=== PATIENT | male | born 1985 | race African-American/Black ===

== ENCOUNTER 2020-12-14 22:58 | Observation (INO) | payer OTHER ==
--- NOTE | 2020-12-14 23:49 | US ---
INDICATION: Right upper quadrant pain TECHNIQUE: Ultrasound abdomen limited. Sonographic images of the right upper quadrant were obtained using hamm-scale and color Doppler images. COMPARISON: None FINDINGS: Liver: Moderate diffuse fatty infiltration of the liver is notedwith mild focal fatty sparing near the gallbladder fossa. Gallbladder: No gallstones or sludge seen in the lumen. The gallbladder wall is normal in appearance. A region of decreased echogenicity seen near the gallbladder fossa along the fundus. This is most likely due to focal fatty sparing rather than tear cholecystic fluid. No pericholecystic fluid is present. No sonographic [place] sign is present. Common bile duct: 5 mm. No intrahepatic biliary ductal dilatation seen. Pancreas: The visualized portions of the pancreatic head and body are normal in appearance. Right Kidney: 10.3 cm. No hydronephrosis or ureterectasis is seen. Vascular: The visualized abdominal aorta and IVC are unremarkable. The visualized portal vein is patent with normal anterograde flow. IMPRESSION: 1. The right upper quadrant is unremarkable in appearance. Dictated by Yuriy Healy MD @ 12/14/2020 11:48:58 PM Dictated by: Yuriy Healy MD @ 12/14/2020 23:49:04 (Electronically Signed)
[2020-12-15] MEDS ORDERED: Morphine 4 MG/ML Syringe IVPUSH ONE (00:32)
[2020-12-15] MEDS ORDERED: Ondansetron 4 MG/2 ML SDV IVPUSH ONE (00:32)
--- NOTE | 2020-12-15 00:52 | EDM.PDOC ---
ED HPI GENERAL MEDICAL PROBLEM - General Chief Complaint: Abdominal Pain Stated Complaint: ABDOMINAL PAIN Time Seen by Provider: 12/14/20 23:01 - History of Present Illness INITIAL COMMENTS - FREE TEXT/NARRATIVE: 35 yo obese but otherwise well male presenting with RUQ pain. Patient developed postprandial that was achy cramping and stabbing. It developed late last night after eating salad with shrimp and biscuits. It started approximately 1 hour following p.o. intake. He has had persistent symptoms. He was seen at the ER and [facility] labs showed an elevated white blood cell count of [address] scan was normal and he was referred to us for ultrasound of his right upper quadrant to evaluate for gallbladder pathology. Patient notes that his pain did radiate to the right shoulder. He has a history of similar but less severe episodes in the past. He has a history of multiple food intolerances and is felt like the symptoms may been related to that. He denies fever. No cough no shortness of breath. Right Upper Abdominal Pain Score (Numeric/FACES): 7 - Related Data Allergies Allergy/AdvReac Type Severity Reaction Status Date / Time soy Allergy Other Verified 12/14/20 23:09 Home Meds: Home Meds . [No Known Home Meds] 12/14/20 [History] Past Medical History - Past Health History Medical/Surgical History: Denies Medical/Surgical History - Infectious Disease History Infectious Disease History: Reports: Chicken Pox Social & Family History - Tobacco Use Tobacco Use Status *Q: Current Every Day Tobacco User Years of Tobacco use: 10 Packs/Tins Daily: 1 - Caffeine Use Caffeine Use: Reports: Coffee, Energy Drinks, Soda, Tea - Recreational Drug Use Recreational Drug Use: Yes Drug Use in Last 12 Months: Yes Recreational Drug Type: Reports: Marijuana/Hashish Recreational Drug Use Frequency: Socially ED ROS GENERAL - Review of Systems Review Of Systems: See Below Free Text/Narrative/Comment: General: No fever. Skin: No rash. Eyes: No vision problems. ENT: No sore throat. Neck: No neck stiffness. Respiratory: No shortness of breath. Cardiac: No chest pain. Gastrointestinal: Per HPI Musculoskeletal: No myalgias/arthralgias. Neurologic: No headache. ED EXAM, GENERAL - Physical Exam Exam: See Below Free Text/Narrative:: General Appearance: No acute distress, appears comfortable Skin: No rash HEENT: Normocephalic/atraumatic, sclera anicteric, mucous membranes moist Neck: Normal range of motion Chest and Lungs: Bilateral breath sounds, clear to auscultation Cardiovascular: Regular rate and rhythm, no murmur, no rib tenderness Abdomen: Soft, epigastric and right upper quadrant tenderness without guarding or rebound Back: Normal Musculoskeletal: No edema or tenderness Neurologic: Awake, alert, no obvious deficits, moving all extremities Psychiatric: Appropriate, cooperative Course - Vital Signs Last Recorded V/S: Last Vital Signs Temp 97 F 12/15/20 00:04 Pulse 60 12/15/20 01:48 Resp 16 12/15/20 01:48 BP 168/97 H 12/15/20 01:48 Pulse Ox 98 12/15/20 01:48 - Orders/Labs/Meds Orders: Active Orders 24 hr Category Date Time Status Patient Status [ADT] Routine ADT 12/15/20 01:38 Active CORONAVIRUS COVID-19 [place] [[facility]] Stat Lab 12/15/20 01:40 Received Meds: Medications Discontinued Medications Generic Name Dose Route Start Last Admin Trade Name Tripp PRN Reason Stop Dose Admin Morphine Sulfate 4 mg 12/15/20 00:32 12/15/20 00:56 Morphine 4 Mg/Ml Syringe IVPUSH 12/15/20 00:33 4 mg ONETIME ONE Administration Ondansetron HCl 4 mg 12/15/20 00:32 12/15/20 00:56 Ondansetron 4 Mg/2 Ml Sdv IVPUSH 12/15/20 00:33 4 mg ONETIME ONE Administration Departure - Departure Time of Disposition: 02:21 Disposition: Refer to Observation Condition: Good Clinical Impression: RUQ pain - Discharge Information *PRESCRIPTION DRUG MONITORING PROGRAM REVIEWED*: Not Applicable *COPY OF PRESCRIPTION DRUG MONITORING REPORT IN PATIENT CICI: Not Applicable Referrals: PCP,Not In Area [Primary Care Provider] - Forms: ED Department Discharge Sepsis Event Note (ED) - Evaluation Sepsis Screening Result: No Definite Risk - Focused Exam Vital Signs: Vital Signs Temp Pulse Resp BP Pulse Ox 12/15/20 01:48 60 16 168/97 H 98 12/15/20 00:59 63 16 163/108 H 97 12/15/20 00:04 97 F 63 16 179/107 H 97 12/14/20 23:09 97 F 62 18 183/125 H 99 - My Orders Last 24 Hours: My Active Orders 12/15/20 01:38 Patient Status [ADT] Routine 12/15/20 01:40 CORONAVIRUS COVID-19 [place] [[facility]LE[facility]] Stat - Assessment/Plan Last 24 Hours: My Active Orders 12/15/20 01:38 Patient Status [ADT] Routine 12/15/20 01:40 CORONAVIRUS COVID-19 [place] [[facility]LE[facility]] Stat Assessment:: 35-year-old male presenting with signs and symptoms that are consistent with biliary pathology. He continues to have significant discomfort he continues to have right upper quadrant tenderness. His ultrasound is being read as normal no stones no gallbladder wall thickening etc. Normal common bile duct. Given his persistent focal tenderness the radiation to the right shoulder I continue to wonder about biliary pathology. It is possible that a HIDA scan might provide additional information but will discuss with general surgery. Patient discussed with Dr. Dahl of general surgery who agrees with admission to medicine and plan for HIDA scan in the morning. Patient discussed with Dr. Jaramillo as well and will admit for observation HIDA scan and further evaluation.
[2020-12-15] MEDS ORDERED: Morphine 2 MG/ML SYRINGE IVPUSH PRN (04:07)
[2020-12-15] MEDS ORDERED: Ondansetron 4 MG/2 ML SDV IVPUSH PRN (04:07)
[2020-12-15] MEDS: Sodium Chloride 0.9% 1,000 ML IV SCH ×2 (04:29→14:53)
[2020-12-15] MEDS: Piperacillin/Tazobactam 3.375 GM in Sodium Chloride 0.9% 50 ML IV SCH ×2 (05:16→10:24)
--- NOTE | 2020-12-15 08:11 | PCM.HP.2 ---
H&P History of Present Illness - General Date of Service: 12/15/20 Admit Problem/Dx: Admission Diagnosis/Problem Admission Diagnosis/Problem Abdominal pain Source of Information: Patient History Limitations: Reports: No Limitations - History of Present Illness Initial Comments - Free Text/Narative: This 35-year-old male with past medical history of obesity, tobacco use and nearly daily alcohol use presented to the ER with complaints of right upper quadrant abdominal pain. He reports this pain started after eating a meal on Monday evening. The meal consisted of fried shrimp, salad and a biscuit. He reports that this pain is very similar to what he had in the past with some indigestion. But he reports that the pain worsened significantly as to where the pain was best if he was more nausea position he had some radiation of pain to his right shoulder had some diaphoresis as well as nausea and vomiting. He reports that stools have been different recently color has been a little bit darker but not necessarily black denies any overt black or bloody stools. He does report that he does get GERD or indigestion when he does spicy foods or foods that he knows well irritate his stomach. He presented to [facility]. For evaluation. There he did have a CAT scan which was negative for any acute findings. He was sent to [place] ER for further evaluation including right upper quadrant ultrasound. He denies any history of gallbladder issues in the past. He does report GERD symptoms. He also reports food intolerances that seem to cause pain such as this. He denies any home medications. He denies any medical history of hypertension HLD, CAD or diabetes. He does smoke half a pack daily. He also does drink nearly daily ba sis. Reporting that he drinks 2-3 drinks nightly and then more on Fridays. He denies any recreational drug use. In the ER lab work completed at [facility] showed leukocytosis of 15,000. Hemoglobin 16 hematocrit 48. Lipase was 13 amylase 41 alk phos 79 AST 36 [address] from ER in [facility] revealed no acute findings but did note hepatic steatosis. No bile duct dilation and no intrahepatic edema or cholecystic fluid. Pancreas appeared normal. Right upper quadrant ultrasound obtained in our ER also negative revealing no bile duct dilation and no gallbladder edema or inflammation. The right upper quadrant otherwise was unremarkable. Repeat lab work this morning revealed leukocytosis had improved to 9000. Hemoglobin 14.8 BMP improved. Lipase 66 Covid swab was negative. In the ER he was treated with IV fluids and Zosyn along with morphine. General surgery was consulted and recommended HIDA scan due to right upper quadrant pain as well as normal CT and ultrasound. Patient was admitted observation for right upper quadrant pain. Right Upper Abdominal Pain Score (Numeric/FACES): 5 - Related Data Allergies/Adverse Reactions: Allergies Allergy/AdvReac Type Severity Reaction Status Date / Time soy Allergy Other Verified 12/15/20 07:59 Home Medications: Home Meds . [No Known Home Meds] 12/14/20 [History] Past Medical History - Past Health History Medical/Surgical History: Denies Medical/Surgical History - Infectious Disease History Infectious Disease History: Reports: Chicken Pox Social & Family History - Tobacco Use Tobacco Use Status *Q: Never Tobacco User Years of Tobacco use: 10 Packs/Tins Daily: 1 - Caffeine Use Caffeine Use: Reports: Coffee, Tea - Alcohol Use Date of Last Drink: 12/11/20 - Recreational Drug Use Recreational Drug Use: Yes Drug Use in Last 12 Months: Yes Recreational Drug Type: Reports: Marijuana/Hashish Recreational Drug Use Frequency: Daily H&P Review of Systems - Review of Systems: Review Of Systems: See Below General: Reports: No Symptoms. Denies: Fever, Chills, Malaise HEENT: Reports: Headaches (No neck pain). Denies: Sinus Congestion, Sore Throat, Vertigo, Visual Changes Pulmonary: Reports: No Symptoms. Denies: Shortness of Breath Cardiovascular: Reports: No Symptoms. Denies: Chest Pain Gastrointestinal: Reports: Abdominal Pain (Significantly improved from yesterday. Little bit more epigastric and left upper quadrant and right upper quadrant this morning. Reporting he is feeling hungry today). Denies: Black Stool, Bloody Stool, Constipation, Diarrhea, Nausea, Vomiting Genitourinary: Reports: No Symptoms. Denies: Dysuria, Frequency, Burning Musculoskeletal: Reports: No Symptoms Skin: Reports: No Symptoms Psychiatric: Reports: No Symptoms Neurological: Reports: No Symptoms Hematologic/Lymphatic: Reports: No Symptoms Immunologic: Reports: No Symptoms Exam - Exam Exam: See Below - Vital Signs Vital Signs: Last Vital Signs Temp 97.2 F 12/15/20 07:59 Pulse 63 12/15/20 07:59 Resp 20 12/15/20 07:59 BP 146/87 H 12/15/20 07:59 Pulse Ox 97 12/15/20 07:59 Weight: 134.4 kg - Exam General: Alert, Oriented, Cooperative HEENT: Conjunctiva Clear, Mucosa Moist & Raven, Posterior Pharynx Clear Lungs: Clear to Auscultation, Normal Respiratory Effort Cardiovascular: Regular Rate, Regular Rhythm GI/Abdominal Exam: Normal Bowel Sounds, Soft, No Distention, No Mass, Tender (Epigastric region) Extremities: Normal Inspection, Normal Range of Motion, Non-Tender, No Pedal Edema, Normal Capillary Refill Neuro Extensive - Mental Status: Alert, Oriented x3 Neuro Extensive - Motor, Sensory, Reflexes: CN II-XII Intact Psychiatric: Alert, Normal Affect, Normal Mood - Patient Data Lab Results Last 24 hrs: Laboratory Results - last 24 hr 12/15/20 Range/Units 01:40 SARS-CoV-2 RNA ([place]) NEGATIVE (NEGATIVE) Result Diagrams: 12/15/20 08:25 12/15/20 08:25 Sepsis Event Note - Evaluation Sepsis Screening Result: No Definite Risk - Focused Exam Vital Signs: Vital Signs Temp Pulse Resp BP Pulse Ox 12/15/20 07:59 97.2 F 63 20 146/87 H 97 12/15/20 03:37 96.5 F L 62 14 165/104 H 96 12/15/20 02:41 65 16 152/96 H 98 12/15/20 01:48 60 16 168/97 H 98 12/15/20 00:59 63 16 163/108 H 97 12/15/20 00:04 97 F 63 16 179/107 H 97 12/14/20 23:09 97 F 62 18 183/125 H 99 - Problem List (1) RUQ pain SNOMED Code(s): 789812188 ICD Code: R10.11 - RIGHT UPPER QUADRANT PAIN Status: Acute Current Visit: Yes (2) Obesity SNOMED Code(s): 241280276, 167899654 ICD Code: E66.9 - OBESITY, UNSPECIFIED Status: Chronic Current Visit: Yes (3) Tobacco use SNOMED Code(s): 508044313 ICD Code: Z72.0 - TOBACCO USE Status: Chronic Current Visit: Yes (4) Alcohol use SNOMED Code(s): 626661 ICD Code: Z72.89 - OTHER PROBLEMS RELATED TO LIFESTYLE Status: Chronic Current Visit: Yes (5) Gastritis SNOMED Code(s): 1161484 ICD Code: K29.70 - GASTRITIS, UNSPECIFIED, WITHOUT BLEEDING Status: Suspected Current Visit: Yes Problem List Initiated/Reviewed/Updated: Yes Orders Last 24hrs: Active Orders 24 hr Category Date Time Status Patient Status [ADT] Routine ADT 12/15/20 01:38 Active Antiembolic Devices [RC] PER UNIT ROUTINE Care 12/15/20 08:10 Ordered Intake and Output [RC] QSHIFT Care 12/15/20 08:10 Ordered May Shower [RC] ASDIRECTED Care 12/15/20 08:09 Ordered Up ad Sudha [RC] ASDIRECTED Care 12/15/20 08:09 Ordered VTE/DVT Education [RC] PER UNIT ROUTINE Care 12/15/20 08:09 Ordered Vital Signs [RC] Q4H Care 12/15/20 08:09 Ordered NPO [Nothing Per Oral Diet] [DIET] Diet 12/15/20 Breakfast Active HIDA with EF [Cholescintigraphy w Pharm Int] [NM] Exams 12/15/20 08:08 Ordered Urgent CBC WITH AUTO DIFF [HEME] AM Lab 12/16/20 05:11 Ordered COMPREHENSIVE METABOLIC PN,CMP [CHEM] AM Lab 12/16/20 05:11 Ordered MAGNESIUM [CHEM] AM Lab 12/16/20 05:11 Ordered Morphine Med 12/15/20 04:07 Active 2 mg IVPUSH Q3H PRN Ondansetron [Zofran] Med 12/15/20 04:07 Active 4 mg IVPUSH Q4H PRN Pantoprazole [ProTONIX IV] Med 12/15/20 08:15 Ordered 40 mg IV Q24H Piperacillin/Tazobactam [Piperacil-Tazobact] 3.375 gm Med 12/15/20 05:00 Active Sodium Chloride 0.9% [Normal Saline] 50 ml IV Q6H Sodium Chloride 0.9% [Normal Saline] 1,000 ml Med 12/15/20 04:00 Active IV ASDIRECTED Sequential Compression Device [OM.PC] Per Unit Routine Oth 12/15/20 08:10 Ordered Resuscitation Status Routine Resus Stat 12/15/20 08:09 Ordered Medication Orders Sodium Chloride (Normal Saline) 1,000 mls @ 125 mls/hr IV ASDIRECTED [facility] Last Admin: 12/15/20 04:29 Dose: 125 mls/hr Documented by: NAZ Piperacillin Sod/Tazobactam (Sod 3.375 gm/ Sodium Chloride) 50 mls @ 100 mls/hr IV Q6H [facility] Last Admin: 12/15/20 05:16 Dose: 100 mls/hr Documented by: NAZ Morphine Sulfate (Morphine 2 Mg/Ml Syringe) 2 mg IVPUSH Q3H PRN PRN Reason: Pain Last Admin: 12/15/20 07:27 Dose: 2 mg Documented by: NAZ Ondansetron HCl (Ondansetron 4 Mg/2 Ml Sdv) 4 mg IVPUSH Q4H PRN PRN Reason: Nausea/Vomiting Assessment/Plan Comment:: This 35-year-old male admitted with right upper quadrant abdominal pain. 1. Abdominal pain -Improving this morning more epigastric region today. -Considerations would be biliary dyskinesia and/or gastritis secondary to frequent alcohol use. -HIDA scan ordered and will be performed this evening patient counseled on holding the use of narcotics as well as no eating and drinking prior to exam. He verbalized understanding -Lab work improved no further leukocytosis noted -Also consider gastritis will add Protonix counseled on alcohol use. May consider outpatient EGD -Counseled on low-fat diet and biliary dyskinesia has many times it is brought on postprandial -We will stop Zosyn as no infectious process noted. -Continue IV fluids for now -Pending HIDA scan results may consider increasing diet to full liquid this even ing. VTE prophylaxis: SCDs and ambulation CODE STATUS: Full code Dispo 1 day.
[2020-12-15] MEDS ORDERED: Pantoprazole 40 MG Vial IV SCH (08:15)
[2020-12-15] MEDS ORDERED: Acetaminophen 325 MG Tab PO PRN (08:17)
[2020-12-15] MEDS: Pantoprazole 40 MG in Sodium Chloride 0.9% 10 ML IV SCH (08:41)
[2020-12-15 09:03] LABS: BLOOD UREA NITROGEN,BUN 8 mg/dL (7.0-18.0); CARBON DIOXIDE,CO2 28.4 mmol/L (21.0-32.0); CHLORIDE,CL 104 mmol/L (98-107); GLUCOSE RANDOM 103 mg/dL (74-106); LIPASE 66 U/L (73-393); POTASSIUM,K 3.9 mmol/L (3.5-5.1); SODIUM,NA 140 mmol/L (136-148)
[2020-12-16] MEDS: Sodium Chloride 0.9% 1,000 ML IV SCH (01:01)
[2020-12-16 06:12] LABS: BLOOD UREA NITROGEN,BUN 9 mg/dL (7.0-18.0); CARBON DIOXIDE,CO2 26.1 mmol/L (21.0-32.0); CHLORIDE,CL 104 mmol/L (98-107); GLUCOSE RANDOM 99 mg/dL (74-106); POTASSIUM,K 3.6 mmol/L (3.5-5.1); SODIUM,NA 139 mmol/L (136-148)
[2020-12-16] MEDS: Pantoprazole 40 MG in Sodium Chloride 0.9% 10 ML IV SCH (07:53)
--- NOTE | 2020-12-16 09:51 | NM ---
Clinical History: Abdominal pain, vomiting 2-3 days Radionuclide Dose: 5.4 mCi 99m Tc Choletec; IV. 2.7 mcg Kinevac; IV infusion over 10 minutes. Comparison: Limited abdominal ultrasound December 14, 2020. Findings: There is normal radionuclide activity in the liver, common bile duct, gallbladder and small bowel. There is no evidence for cystic or common duct obstruction or intrinsic liver disease. Patient remained asymptomatic with Kinevac injection. The gallbladder ejection fraction measures 78%. Normal range for GB EF: Equal to or greater than 35%. Impression: 1. Normal hepatobiliary scan. 2. Gallbladder ejection fraction measures 78%. Dictated by Suleiman Matias MD @ 12/16/2020 9:51:[address] Suleiman Matias @ Dec 16 2020 9:51AM
--- NOTE | 2020-12-16 10:53 | PCM.DCSUM1 ---
Discharge Summary - Hospital Course Brief History: This 35-year-old male with past medical history of obesity, tobacco use and nearly daily alcohol use presented to the ER with complaints of right upper quadrant abdominal pain. He reports this pain started after eating a meal on Monday evening. The meal consisted of fried shrimp, salad and a biscuit. He reports that this pain is very similar to what he had in the past with some indigestion. But he reports that the pain worsened significantly as to where the pain was best if he was more nausea position he had some radiation of pain to his right shoulder had some diaphoresis as well as nausea and vomiting. He reports that stools have been different recently color has been a little bit darker but not necessarily black denies any overt black or bloody stools. He does report that he does get GERD or indigestion when he does spicy foods or foods that he knows well irritate his stomach. He presented to [facility]. For evaluation. There he did have a CAT scan which was negative for any acute findings. He was sent to [facility] for further evaluation including right upper quadrant ultrasound. He denies any history of gallbladder issues in the past. He does report GERD symptoms. He also reports food intolerances that seem to cause pain such as this. He denies any home medications. He denies any medical history of hypertension HLD, CAD or diabetes. He does smoke half a pack daily. He also does drink nearly daily basis. Reporting that he drinks 2-3 drinks nightly and then more on Fridays. He denies any recreational drug use. In the ER lab work completed at [facility] showed leukocytosis of 15,000. Hemoglobin 16 hematocrit 48. Lipase was 13 amylase 41 alk phos 79 AST 36 [address] from ER in [facility] revealed no acute findings but did note hepatic steatosis. No bile duct dilation and no intrahepatic edema or cholecystic fluid. Pancreas appeared normal. Right upper quadrant ultrasound obtained in our ER also negative revealing no bile duct dilation and no gallbladder edema or inflammation. The right upper quadrant otherwise was unremarkable. Repeat lab work this morning revealed leukocytosis had improved to 9000. Hemoglobin 14.8 BMP improved. Lipase 66 Covid swab was negative. In the ER he was treated with IV fluids and Zosyn along with morphine. General surgery was consulted and recommended HIDA scan due to right upper quadrant pain as well as normal CT and ultrasound. Patient was admitted observation for right upper quadrant pain. Diagnosis: Stroke: No - Discharge Data Discharge Date: 12/16/20 Discharge Disposition: Home, Self-Care 01 Condition: Good - Referral to Home Health Primary Care Physician: PCP Not In Area - Discharge Diagnosis/Problem(s) (1) RUQ pain SNOMED Code(s): 751084380 ICD Code: R10.11 - RIGHT UPPER QUADRANT PAIN Status: Acute Current Visit: Yes (2) Obesity SNOMED Code(s): 798295029, 705430703 ICD Code: E66.9 - OBESITY, UNSPECIFIED Status: Chronic Current Visit: Yes (3) Tobacco use SNOMED Code(s): 742826306 ICD Code: Z72.0 - TOBACCO USE Status: Chronic Current Visit: Yes (4) Alcohol use SNOMED Code(s): 661974 ICD Code: Z72.89 - OTHER PROBLEMS RELATED TO LIFESTYLE Status: Chronic Current Visit: Yes (5) Gastritis SNOMED Code(s): 6237805 ICD Code: K29.70 - GASTRITIS, UNSPECIFIED, WITHOUT BLEEDING Status: Suspected Current Visit: Yes - Patient Summary/Data Hospital Course: Admitting diagnoses Right upper quadrant pain Suspect gastritis Suspect biliary dyskinesia Discharge diagnoses Gastritis And he was admitted secondary to right upper quadrant pain which did resolve and is tolerating diet well. HIDA scan was obtained which was negative showing an EF of gallbladder 78%. He was treated with IV fluids and initially Zosyn due to elevated white count but there is no infectious source noted within the abdomen. Today no leukocytosis noted. He is eating a regular diet well and will be discharged home. He will continue Protonix for possible gastritis. He was counseled on stopping his alcohol use which he verbalized understanding and agreement. He does not take any NSAIDs but encouraged to stay away from these as well. We will set up outpatient general surgery follow-up due to his right upper quadrant pain as well as possible gastritis for follow-up EGD. He is to return to the ER clinic if concerns should arise, follow-up with PCP in 1 week. - Patient Instructions Diet: GI Soft/Low Residue/Low Fiber (Low fat) Activity: As Tolerated, No Strenuous Activities Showering/Bathing: May Shower Notify Provider of: Fever, Increased Pain, Swelling and Redness, Drainage, Nausea and/or Vomiting - Discharge Plan *PRESCRIPTION DRUG MONITORING PROGRAM REVIEWED*: Not Applicable *COPY OF PRESCRIPTION DRUG MONITORING REPORT IN PATIENT CICI: Not Applicable Prescriptions/Med Rec: Pantoprazole Sodium [Protonix] 40 mg PO DAILY #30 tablet. Home Medications: Home Meds Pantoprazole Sodium [Protonix] 40 mg PO DAILY #30 tablet. 12/16/20 [Rx] Oxygen Therapy Mode: Room Air Patient Handouts: Fat and Cholesterol Restricted Eating Plan, Abdominal Pain, Adult, [id number], Pantoprazole tablets Referrals: Adina Currie NP [Ordering Only Provider] - 12/24/20 9:30 am - Discharge Summary/Plan Comment DC Time >30 min.: No - Patient Data Vitals - Most Recent: Last Vital Signs Temp 96.4 F L 12/16/20 07:56 Pulse 60 12/16/20 07:56 Resp 22 H 12/16/20 07:56 BP 149/99 H 12/16/20 07:56 Pulse Ox 97 12/16/20 07:56 Weight - Most Recent: 134.4 kg I&O - Last 24 hours: Intake & Output 12/15/20 12/16/20 12/16/20 22:59 06:59 14:59 Intake Total 650 453 Balance 650 453 Lab Results - Last 24 hrs: Laboratory Results - last 24 hr 12/16/20 12/16/20 Range/Units 05:12 05:12 WBC 10.30 (4.0-11.0) K/uL RBC 4.92 (4.50-5.90) M/uL Hgb 14.5 (13.0-17.0) g/dL Hct 43.2 (38.0-50.0) % MCV 87.8 (80.0-98.0) fL MCH 29.5 (27.0-32.0) pg MCHC 33.6 (31.0-37.0) g/dL RDW Std Deviation 37.9 (28.0-62.0) fl RDW Coeff of [place] 12 (11.0-15.0) % Plt Count 291 (150-400) K/uL MPV 10.40 (7.40-12.00) fL Neut % (Auto) 61.8 (48.0-80.0) % Lymph % (Auto) 27.5 (16.0-40.0) % [place] % (Auto) 6.5 (0.0-15.0) % Eos % (Auto) 4.0 (0.0-7.0) % Baso % (Auto) 0.2 (0.0-1.5) % Neut # (Auto) 6.4 H (1.4-5.7) K/uL Lymph # (Auto) 2.8 H (0.6-2.4) K/uL [place] # (Auto) 0.7 (0.0-0.8) K/uL Eos # (Auto) 0.4 (0.0-0.7) K/uL Baso # (Auto) 0.0 (0.0-0.1) K/uL Nucleated RBC % 0.0 /100WBC Nucleated RBCs # 0 K/uL Sodium 139 (136-148) mmol/L Potassium 3.6 (3.5-5.1) mmol/L Chloride 104 (98-107) mmol/L Carbon Dioxide 26.1 (21.0-32.0) mmol/L BUN 9 (7.0-18.0) mg/dL Creatinine 1.1 (0.8-1.3) mg/dL Est Cr Clr Drug Dosing 100.78 mL/min Estimated GFR (MDRD) > 60.0 ml/min Glucose 99 (74-106) mg/dL Calcium 8.2 L (8.5-10.1) mg/dL Magnesium 2.0 (1.8-2.4) mg/dL Total Bilirubin 0.7 (0.2-1.0) mg/dL AST 23 (15-37) IU/L ALT 56 (14-63) IU/L Alkaline Phosphatase 67 (46-116) U/L Total Protein 6.6 (6.4-8.2) g/dL Albumin 3.4 (3.4-5.0) g/dL Globulin 3.2 (2.6-4.0) g/dL Albumin/Globulin Ratio 1.1 (0.9-1.6) Med Orders - Current: Current Medications Acetaminophen (Acetaminophen 325 Mg Tab) 650 mg PO Q4H PRN PRN Reason: Pain Pantoprazole Sodium 40 mg/ (Sodium Chloride) 10 mls @ 300 mls/hr IV Q24H TIMMY Last Admin: 12/16/20 07:53 Dose: 300 mls/hr Documented by: Morphine Sulfate (Morphine 2 Mg/Ml Syringe) 2 mg IVPUSH Q3H PRN PRN Reason: Pain Last Admin: 12/15/20 07:27 Dose: 2 mg Documented by: Ondansetron HCl (Ondansetron 4 Mg/2 Ml Sdv) 4 mg IVPUSH Q4H PRN PRN Reason: Nausea/Vomiting Discontinued Medications Sodium Chloride (Normal Saline) 1,000 mls @ 125 mls/hr IV ASDIRECTED [facility] Last Admin: 12/16/20 01:01 Dose: 125 mls/hr Documented by: Piperacillin Sod/Tazobactam (Sod 3.375 gm/ Sodium Chloride) 50 mls @ 100 mls/hr IV Q6H [facility] Last Admin: 12/15/20 10:24 Dose: 100 mls/hr Documented by: Morphine Sulfate (Morphine 4 Mg/Ml Syringe) 4 mg IVPUSH ONETIME ONE Stop: 12/15/20 00:33 Last Admin: 12/15/20 00:56 Dose: 4 mg Documented by: Ondansetron HCl (Ondansetron 4 Mg/2 Ml Sdv) 4 mg IVPUSH ONETIME ONE Stop: 12/15/20 00:33 Last Admin: 12/15/20 00:56 Dose: 4 mg Documented by:
== END 2020-12-16 13:08 | disposition home or self-care (01) ==
LOC: MW.ED 22:58 → MW.MS 12-15 01:38
PROVIDERS: ADMIT Internal Medicine; ATTEND Internal Medicine
DX: R10.11 Right upper quadrant pain (principal); K29.70 Gastritis, unspecified, without bleeding; D72.829 Elevated white blood cell count, unspecified; K76.0 Fatty (change of) liver, not elsewhere classified; F17.210 Nicotine dependence, cigarettes, uncomplicated; E66.9 Obesity, unspecified; Z68.41 Body mass index [BMI] 40.0-44.9, adult; Z72.89 Other problems related to lifestyle; Z91.018 Allergy to other foods; Z20.822 Contact with and (suspected) exposure to COVID-19
CPT/HCPCS: 36415; 76705; 78227; 80053; 83690; 83735; 85025; 87635; 96374; 96375; 99285; A9537; C9113; J2270; J2405; J2543; J2805; J7030; 99283; U0002